=== PATIENT | male | born 1935 | race Caucasian/White ===

== ENCOUNTER 2017-03-25 18:12 | Emergency (ER) | payer OTHER ==
[~2017-03-25] VITALS: Ht 167.6 cm; Wt 67.0 kg
[~2017-03-25 18:12] MED LIST: ED B10TA PO; LEVO100T4 PO; PROS5TAB2 PO; ST J81CH PO; TAMS0.4C67 PO
[2017-03-25 18:22] VITALS: BP 138/92; PULSE 110; RESP 16; TEMP 98.8; O2SAT 90
--- NOTE | 2017-03-25 20:39 | PD ---
Physical Exam Time Seen by Provider: 20:37 Narrative 82 y/o male with decreased hearing L ear for 2 days. Vital signs reviewed. Seen at triage desk. Awaiting bed placement. Data Data Last Documented VS Vital Signs Date Time Temp Pulse Resp B/P Pulse Ox O2 Delivery O2 Flow Rate FiO2 03/25/17 18:22 98.8 110 16 138/92 90 Room Air MDM Medical Record Reviewed: Yes Supervised Visit with KAYLA: No Cassius Johnson Mar 25, 2017 20:39
== END 2017-03-25 20:44 | disposition left against medical advice (07) ==
LOC: NED 18:12
DX: H91.92 Unspecified hearing loss, left ear (principal); Z53.21 Procedure and treatment not carried out due to patient leaving prior to being seen by health care provider
CPT/HCPCS: 99281